=== PATIENT | male | born 1970 | race African-American/Black ===

== ENCOUNTER 2016-11-24 08:05 | Inpatient (IN) | payer MEDICAID ==
[2016-11-24] VITALS (11 sets, daily range): BP systolic 123–179; BP diastolic 86–113
[~2016-11-24] VITALS: Ht 172.7 cm; Wt 90.7 kg
[~2016-11-24 08:05] MED LIST: AMLO10TA80 PO; ASPI-864 PO; CARV25TA47 PO; HYDR100T26 PO; ISOS30TA6 PO; vancomycin IV
[2016-11-24] MEDS ORDERED: ONDANSETRON HCL 4MG/2ML VIAL IV STA (08:59)
[2016-11-24] MEDS ORDERED: MORPHINE SULFATE 4 MG/ML CPJ (NOT FOR IM USE) IV STA (08:59)
[2016-11-24] MEDS ORDERED: ASPIRIN 81MG TABLET PO ONE (09:00)
[2016-11-24] MEDS ORDERED: NITROGLYCERIN OINT 1GM/INCH UDPKT TD ONE (09:00)
[2016-11-24 09:25] LABS: BASOPHILS % 0.9 % (0.0-2.0); DIFFERENTIAL COMMENT 0; EOSINOPHILS % 3.6 % (0.0-5.0); LYMPHOCYTES % 15.4 % (20.0-50.0); MEAN CORPUSCULAR HEMOGLOBIN 26.9 pg (28.0-32.0); MEAN CORPUSCULAR HGB CONC 31.1 g/dL (31.0-37.0); MEAN CORPUSCULAR VOLUME 86.5 fL (80.0-94.0); MEAN PLATELET VOLUME 7.7 fl (7.4-10.4); NEUTROPHILS % 67.1 % (40.0-76.0); PLATELET 292 x1000/uL (130-400); WHITE BLOOD COUNT 6.3 x1000/uL (4.5-11.0)
[2016-11-24 09:29] LABS: INR 1.3; PROTHROMBIN TIME 13.3 sec
[2016-11-24 09:36] LABS: ALANINE AMINOTRANSFERASE 17 IU/L (13-61); ALBUMIN 1.9 g/dL (3.4-5.0); ANION GAP 18; CALCIUM 8.1 mg/dL (8.5-10.1); CARBON DIOXIDE 24 mEq/L (21-32); CHLORIDE 98 mEq/L (98-107); INDEX HEMOLYSI 1 (1-3); INDEX ICTERIC 1 (1-4); INDEX LIPEMIC 1 (1-3); TROPONIN I 0.04 ng/mL (0.00-0.04); UREA NITROGEN BLOOD 64 mg/dL (7-21); eGFR 12 mL/min (>60)
[2016-11-24 09:45] LABS: HEMATOCRIT. 19.9 % (42.0-52.0); HEMOGLOBIN. 6.2 g/dL (14.0-18.0)
[2016-11-24] MEDS ORDERED: FUROSEMIDE 40MG/4ML VIAL IVP ONE (10:15)
[2016-11-24] MEDS ORDERED: PIPERACILLIN/TAZOBACTAM 3.375GM/50ML PREMIX IV ONE (10:15)
[2016-11-24] MEDS ORDERED: VANCOMYCIN 1 G PREMIX 200 ML IV SCH (10:15)
[2016-11-24] MEDS ORDERED: PIPERACILLIN/TAZ 3.375G PREMIX 50 ML IV SCH (10:30)
[2016-11-24] MEDS ORDERED: DOCUSATE SODIUM 100MG CAPSULE PO PRN (11:30)
[2016-11-24] MEDS ORDERED: ONDANSETRON HCL 4MG/2ML VIAL IV PRN (11:30)
[2016-11-24] MEDS ORDERED: NITROGLYCERIN 0.4MG TABLET SL SL PRN (11:30)
[2016-11-24] MEDS ORDERED: MAGNESIUM/ALUMINUM HYDROXIDE/SIMETHICONE 30ML UDC PO PRN (11:30)
[2016-11-24] MEDS ORDERED: ACETAMINOPHEN 325MG TABLET PO PRN (11:30)
[2016-11-24] MEDS ORDERED: NA PHOS,M-B/NA PHOS,DI-BA ENEMA 118ML PR PRN (11:30)
[2016-11-24] MEDS ORDERED: IPRATROPIUM/ALBUTEROL 0.5-3(2.5)MG/3ML NEB INH PRN (11:30)
[2016-11-24] MEDS ORDERED: LORAZEPAM 2MG/ML CPJ IV PRN (11:30)
[2016-11-24] MEDS ORDERED: GUAIFENESIN 200MG/10ML SUGAR FREE UDC PO PRN (11:30)
[2016-11-24] MEDS ORDERED: ENOXAPARIN 40MG/0.4ML SYR SUBCUT SCH (11:30)
[2016-11-24] MEDS ORDERED: ZOLPIDEM TARTRATE 5MG TABLET PO PRN (11:30)
[2016-11-24] MEDS: ENOXAPARIN 30MG/0.3ML SYR SUBCUT SCH (12:30)
[2016-11-24] MEDS: HYDRALAZINE HCL 50MG TABLET PO SCH ×2 (14:00→21:23)
[2016-11-24] MEDS: SEVELAMER CARBONATE 800 MG TABLET PO SCH ×2 (14:41→18:31)
[2016-11-24] MEDS ORDERED: HEPARIN SODIUM 1,000 UNIT/1ML VIAL IV SCH (16:00)
[2016-11-24 16:27] LABS: CREATINE KINASE MB FRACTION 10.4 ng/mL (0.5-3.6); TROPONIN I 0.04 ng/mL (0.00-0.04)
[2016-11-24 17:56] LABS: HEPATITIS B SURFACE AB < 3.1 mIU/mL
[2016-11-24] MEDS ORDERED: ISOSORBIDE MONONITRATE 30MG TABLET SR 24HR PO SCH (18:15)
[2016-11-24] MEDS: ISOSORBIDE MONONITRATE 30MG TABLET SR 24HR PO SCH (18:31)
[2016-11-24] MEDS: CARVEDILOL 3.125 MG TABLET PO SCH (18:31)
[2016-11-24] MEDS: CLONIDINE 0.1MG TABLET PO PRN (18:31)
[2016-11-24] MEDS: TRAMADOL 50MG TABLET PO PRN (18:32)
[2016-11-24 18:36] LABS: HEPATITIS B CORE AB IGM NEGATIVE
[2016-11-24 23:51] LABS: CREATINE KINASE MB FRACTION 9.4 ng/mL (0.5-3.6); TROPONIN I 0.04 ng/mL (0.00-0.04)
[2016-11-25] VITALS (14 sets, daily range): BP systolic 128–164; BP diastolic 86–101
[2016-11-25] MEDS: TRAMADOL 50MG TABLET PO PRN ×4 (00:36→23:37)
[2016-11-25] MEDS: CLONIDINE 0.1MG TABLET PO PRN (00:36)
[2016-11-25] MEDS: HYDRALAZINE HCL 50MG TABLET PO SCH ×3 (05:29→22:08)
[2016-11-25] MEDS: CARVEDILOL 3.125 MG TABLET PO SCH ×2 (05:29→18:45)
[2016-11-25] MEDS: DIPHENHYDRAMINE 50MG/ML VIAL IV PRN ×4 (06:14→23:40)
[2016-11-25 07:03] LABS: HEMATOCRIT. 21.8 % (42.0-52.0); HEMOGLOBIN. 7.1 g/dL (14.0-18.0); MEAN CORPUSCULAR HEMOGLOBIN 28.6 pg (28.0-32.0); MEAN CORPUSCULAR HGB CONC 32.7 g/dL (31.0-37.0); MEAN CORPUSCULAR VOLUME 87.6 fL (80.0-94.0); MEAN PLATELET VOLUME 7.9 fl (7.4-10.4); PLATELET 254 x1000/uL (130-400); RED BLOOD CELL COUNT 2.49 mill/uL (4.7-6.1); RED CELL DISTRIBUTION WIDTH 18.9 % (11.6-14.6); WHITE BLOOD COUNT 6.8 x1000/uL (4.5-11.0)
[2016-11-25 07:35] LABS: CALCIUM 8.2 mg/dL (8.5-10.1)
[2016-11-25 07:42] LABS: DIFFERENTIAL COMMENT 1
[2016-11-25] MEDS: FOLIC ACID/VITAMIN B COMP W-C TABLET PO SCH (08:53)
[2016-11-25] MEDS: ISOSORBIDE MONONITRATE 30MG TABLET SR 24HR PO SCH (08:54)
[2016-11-25] MEDS: AMLODIPINE 10MG TABLET PO SCH (08:54)
[2016-11-25] MEDS: SEVELAMER CARBONATE 800 MG TABLET PO SCH ×3 (08:54→18:45)
[2016-11-25] MEDS: PANTOPRAZOLE SODIUM 40 MG/VIAL IV SCH (08:55)
[2016-11-25] MEDS: ENOXAPARIN 30MG/0.3ML SYR SUBCUT SCH (11:38)
[2016-11-25] MEDS ORDERED: HEPARIN SODIUM 1,000 UNIT/1ML VIAL IV NR (13:15)
[2016-11-25 14:11] LABS: ANISOCYTOSIS 1+; PLATELET ESTIMATE NORMAL
[2016-11-26] VITALS: BP 164/101
[2016-11-26] MEDS: CLONIDINE 0.1MG TABLET PO PRN (01:34)
[2016-11-26 04:00] VITALS: BP 177/97
[2016-11-26] MEDS: DIPHENHYDRAMINE 50MG/ML VIAL IV PRN (05:47)
[2016-11-26] MEDS: TRAMADOL 50MG TABLET PO PRN (05:51)
[2016-11-26] MEDS: CARVEDILOL 3.125 MG TABLET PO SCH (05:51)
[2016-11-26] MEDS: HYDRALAZINE HCL 50MG TABLET PO SCH ×2 (05:51→13:40)
[2016-11-26 06:32] LABS: HEMATOCRIT. 25.5 % (42.0-52.0); HEMOGLOBIN. 8.3 g/dL (14.0-18.0); MEAN CORPUSCULAR HEMOGLOBIN 27.9 pg (28.0-32.0); MEAN CORPUSCULAR HGB CONC 32.6 g/dL (31.0-37.0); MEAN CORPUSCULAR VOLUME 85.4 fL (80.0-94.0); MEAN PLATELET VOLUME 7.9 fl (7.4-10.4); PLATELET 293 x1000/uL (130-400); RED BLOOD CELL COUNT 2.99 mill/uL (4.7-6.1); RED CELL DISTRIBUTION WIDTH 17.8 % (11.6-14.6); WHITE BLOOD COUNT 6.7 x1000/uL (4.5-11.0)
[2016-11-26 07:34] LABS: CALCIUM 8.1 mg/dL (8.5-10.1)
[2016-11-26 07:45] LABS: DIFFERENTIAL COMMENT 1
[2016-11-26 08:00] VITALS: BP 154/100
[2016-11-26] MEDS: PANTOPRAZOLE SODIUM 40 MG/VIAL IV SCH (09:23)
[2016-11-26] MEDS: FOLIC ACID/VITAMIN B COMP W-C TABLET PO SCH (09:24)
[2016-11-26] MEDS: ISOSORBIDE MONONITRATE 30MG TABLET SR 24HR PO SCH (09:24)
[2016-11-26] MEDS: AMLODIPINE 10MG TABLET PO SCH (09:24)
[2016-11-26] MEDS: SEVELAMER CARBONATE 800 MG TABLET PO SCH ×2 (09:25→13:40)
[2016-11-26 12:00] VITALS: BP 160/110
[2016-11-26] MEDS: ENOXAPARIN 30MG/0.3ML SYR SUBCUT SCH (12:53)
[2016-11-26 13:18] VITALS: BP 160/110
[2016-11-26 16:28] LABS: PLATELET ESTIMATE NORMAL
[2016-11-27] MEDS ORDERED: FAMOTIDINE 20MG TABLET PO SCH (09:00)
== END 2016-11-26 12:30 | disposition home or self-care (01) | DRG 194 ==
LOC: ER 08:37 → 7WST 10:52
PROVIDERS: ADMIT Internal Medicine; ATTEND Internal Medicine
PROC: 30233N1 Transfusion of Nonautologous Red Blood Cells into Peripheral Vein, Percutaneous Approach (ICD-10-PCS; principal; 2016-11-24)
PROC: 5A1D60Z (ICD-10-PCS; 2016-11-24)
DX: I13.2 Hypertensive heart and chronic kidney disease with heart failure and with stage 5 chronic kidney disease, or end stage renal disease (principal); J96.00 Acute respiratory failure, unspecified whether with hypoxia or hypercapnia; E43 Unspecified severe protein-calorie malnutrition; J18.9 Pneumonia, unspecified organism; E87.0 Hyperosmolality and hypernatremia; N18.6 End stage renal disease; I42.9 Cardiomyopathy, unspecified; E11.22 Type 2 diabetes mellitus with diabetic chronic kidney disease; I50.43 Acute on chronic combined systolic (congestive) and diastolic (congestive) heart failure; D63.8 Anemia in other chronic diseases classified elsewhere; F12.90 Cannabis use, unspecified, uncomplicated; J45.909 Unspecified asthma, uncomplicated; Z98.890 Other specified postprocedural states; Z83.3 Family history of diabetes mellitus; Z82.49 Family history of ischemic heart disease and other diseases of the circulatory system; Z68.30 Body mass index [BMI] 30.0-30.9, adult; Z99.2 Dependence on renal dialysis
CPT/HCPCS: 36415; 71010; 80048; 80053; 82550; 82553; 83036; 84484; 85025; 85610; 86705; 86706; 86850; 86900; 86920; 87040; 93005; 93970; 96365; 96375; 99285; C9113; J1200; J1644; J1650; J1940; J2270; J2405; J2543; J3370; J7030; J7050; J7620; P9016

== ENCOUNTER 2016-12-02 16:29 | Inpatient (IN) | payer MEDICAID ==
[~2016-12-02] VITALS: Ht 172.7 cm; Wt 90.7 kg
[2016-12-02 17:34] LABS: MEAN CORPUSCULAR HEMOGLOBIN 27.4 pg (28.0-32.0); MEAN CORPUSCULAR HGB CONC 32.9 g/dL (31.0-37.0); MEAN CORPUSCULAR VOLUME 83.3 fL (80.0-94.0); MEAN PLATELET VOLUME 7.1 fl (7.4-10.4); PLATELET 261 x1000/uL (130-400); RED BLOOD CELL COUNT 2.24 mill/uL (4.7-6.1); RED CELL DISTRIBUTION WIDTH 18.4 % (11.6-14.6); WHITE BLOOD COUNT 8.4 x1000/uL (4.5-11.0)
[2016-12-02 17:36] LABS: HEMOGLOBIN. 6.1 g/dL (14.0-18.0)
[2016-12-02 17:37] LABS: DIFFERENTIAL COMMENT 1; HEMATOCRIT. 18.7 % (42.0-52.0)
[2016-12-02 17:38] LABS: CHLORIDE 98 mEq/L (98-107); INDEX HEMOLYSI 1 (1-3); INDEX ICTERIC 1 (1-4); INDEX LIPEMIC 1 (1-3)
[2016-12-02 17:41] LABS: ALBUMIN 1.9 g/dL (3.4-5.0); ANION GAP 14; CALCIUM 7.9 mg/dL (8.5-10.1); CARBON DIOXIDE 30 mEq/L (21-32); INR 1.2; LIPASE 225 IU/L (73-393); MAGNESIUM 2.4 mg/dL (1.8-2.4); PARTIAL THROMBOPLASTIN TIME 30.6 sec (24.0-34.0); PROTHROMBIN TIME 12.7 sec; UREA NITROGEN BLOOD 39 mg/dL (7-21)
[2016-12-02 17:44] LABS: ALANINE AMINOTRANSFERASE 29 IU/L (13-61); PHOSPHORUS 3.9 mg/dL (2.5-4.9); eGFR 26 mL/min (>60)
[2016-12-02 17:46] LABS: TROPONIN I 0.06 ng/mL (0.00-0.04)
[2016-12-02 17:49] LABS: ANISOCYTOSIS 1+; PLATELET ESTIMATE NORMAL
[2016-12-02] MEDS ORDERED: MORPHINE SULFATE 4 MG/ML CPJ (NOT FOR IM USE) IV ONE ×2 (18:15→19:15)
[2016-12-02] MEDS ORDERED: ONDANSETRON HCL 4MG/2ML VIAL IV ONE ×2 (18:15→19:15)
[2016-12-02] MEDS ORDERED: ZOLPIDEM TARTRATE 5MG TABLET PO PRN (21:00)
[2016-12-02] MEDS ORDERED: DIPHENHYDRAMINE 50MG/ML VIAL IV ONE (21:00)
[2016-12-02 22:39] VITALS: BP 157/89
[2016-12-02] MEDS ORDERED: DOCUSATE SODIUM 100MG CAPSULE PO PRN (23:00)
[2016-12-02] MEDS ORDERED: IPRATROPIUM/ALBUTEROL 0.5-3(2.5)MG/3ML NEB INH PRN (23:00)
[2016-12-02] MEDS ORDERED: ONDANSETRON HCL 4MG/2ML VIAL IV PRN (23:00)
[2016-12-02] MEDS: MORPHINE SULFATE 2 MG/ML CPJ (NOT FOR IM USE) IV PRN (23:45)
[2016-12-03] VITALS (16 sets, daily range): BP systolic 143–178; BP diastolic 82–110
[2016-12-03] MEDS ORDERED: PIPERACILLIN/TAZ 3.375G PREMIX 50 ML IV ONE (00:30)
[2016-12-03] MEDS: DIPHENHYDRAMINE 50MG/ML VIAL IV PRN ×4 (02:06→18:05)
[2016-12-03] MEDS: MORPHINE SULFATE 2 MG/ML CPJ (NOT FOR IM USE) IV PRN ×5 (04:11→21:06)
[2016-12-03] MEDS: OMEPRAZOLE 20MG CAPSULE EXTENDED RELEASE PO SCH (06:25)
[2016-12-03 09:19] LABS: HEMATOCRIT. 21.4 % (42.0-52.0); HEMOGLOBIN. 7.2 g/dL (14.0-18.0); MEAN CORPUSCULAR HEMOGLOBIN 28.3 pg (28.0-32.0); MEAN CORPUSCULAR HGB CONC 33.6 g/dL (31.0-37.0); MEAN CORPUSCULAR VOLUME 84.2 fL (80.0-94.0); MEAN PLATELET VOLUME 7.6 fl (7.4-10.4); PLATELET 246 x1000/uL (130-400); RED BLOOD CELL COUNT 2.55 mill/uL (4.7-6.1); RED CELL DISTRIBUTION WIDTH 17.8 % (11.6-14.6)
[2016-12-03 09:30] LABS: DIFFERENTIAL COMMENT 1
[2016-12-03 09:38] LABS: CALCIUM 8.2 mg/dL (8.5-10.1); MAGNESIUM 2.7 mg/dL (1.8-2.4); TROPONIN I 0.05 ng/mL (0.00-0.04)
[2016-12-03] MEDS: PIPERACILLIN/TAZ 2.25G PREMIX 50 ML IV SCH ×2 (13:00→21:06)
[2016-12-03 14:42] LABS: ANISOCYTOSIS 1+; PLATELET ESTIMATE NORMAL
[2016-12-03] MEDS: CLONIDINE 0.1MG TABLET PO PRN (17:17)
[2016-12-03] MEDS: ACETAMINOPHEN 325MG TABLET PO PRN (19:30)
[2016-12-04] VITALS (8 sets, daily range): BP systolic 151–188; BP diastolic 96–133
[2016-12-04] MEDS: DIPHENHYDRAMINE 50MG/ML VIAL IV PRN ×5 (00:05→21:01)
[2016-12-04] MEDS: MORPHINE SULFATE 2 MG/ML CPJ (NOT FOR IM USE) IV PRN ×7 (00:45→23:51)
[2016-12-04] MEDS: CLONIDINE 0.1MG TABLET PO PRN ×3 (00:45→16:36)
[2016-12-04] MEDS: ACETAMINOPHEN 325MG TABLET PO PRN (05:08)
[2016-12-04] MEDS: PIPERACILLIN/TAZ 2.25G PREMIX 50 ML IV SCH ×3 (05:47→21:01)
[2016-12-04 06:01] LABS: HEMATOCRIT. 25.8 % (42.0-52.0); HEMOGLOBIN. 8.7 g/dL (14.0-18.0); MEAN CORPUSCULAR HEMOGLOBIN 29.2 pg (28.0-32.0); MEAN CORPUSCULAR HGB CONC 33.7 g/dL (31.0-37.0); MEAN CORPUSCULAR VOLUME 86.7 fL (80.0-94.0); PLATELET 251 x1000/uL (130-400); RED BLOOD CELL COUNT 2.98 mill/uL (4.7-6.1); RED CELL DISTRIBUTION WIDTH 17.3 % (11.6-14.6); WHITE BLOOD COUNT 12.1 x1000/uL (4.5-11.0)
[2016-12-04 06:11] LABS: DIFFERENTIAL COMMENT 1
[2016-12-04] MEDS: OMEPRAZOLE 20MG CAPSULE EXTENDED RELEASE PO SCH (06:27)
[2016-12-04 06:47] LABS: CALCIUM 8.5 mg/dL (8.5-10.1)
[2016-12-04 09:27] LABS: ANISOCYTOSIS 1+; PLATELET ESTIMATE NORMAL
[2016-12-04] MEDS: AMLODIPINE 10MG TABLET PO SCH (10:50)
[2016-12-04] MEDS: HYDRALAZINE HCL 100MG TABLET PO SCH ×2 (13:23→21:00)
[2016-12-04] MEDS: HYDROCODONE/ACETAMINOPHEN 5/325MG TABLET PO PRN ×2 (13:24→18:03)
[2016-12-04] MEDS: CARVEDILOL 25MG TABLET PO SCH (20:10)
[2016-12-05] VITALS (9 sets, daily range): BP systolic 142–160; BP diastolic 86–102
[2016-12-05] MEDS: DIPHENHYDRAMINE 50MG/ML VIAL IV PRN ×3 (01:58→10:16)
[2016-12-05] MEDS: HYDROCODONE/ACETAMINOPHEN 5/325MG TABLET PO PRN ×2 (01:59→10:25)
[2016-12-05] MEDS: CLONIDINE 0.1MG TABLET PO PRN (04:05)
[2016-12-05] MEDS: MORPHINE SULFATE 2 MG/ML CPJ (NOT FOR IM USE) IV PRN ×3 (04:05→14:14)
[2016-12-05] MEDS: PIPERACILLIN/TAZ 2.25G PREMIX 50 ML IV SCH ×2 (05:28→14:13)
[2016-12-05] MEDS: HYDRALAZINE HCL 100MG TABLET PO SCH ×2 (05:28→14:14)
[2016-12-05 05:52] LABS: BASOPHILS % 0.7 % (0.0-2.0); EOSINOPHILS % 2.4 % (0.0-5.0); HEMATOCRIT. 24.9 % (42.0-52.0); HEMOGLOBIN. 8.2 g/dL (14.0-18.0); LYMPHOCYTES % 10.5 % (20.0-50.0); MEAN CORPUSCULAR HEMOGLOBIN 28.1 pg (28.0-32.0); MEAN CORPUSCULAR HGB CONC 32.8 g/dL (31.0-37.0); MEAN CORPUSCULAR VOLUME 85.7 fL (80.0-94.0); MEAN PLATELET VOLUME 8.3 fl (7.4-10.4); MONOCYTES % 13.9 % (2.0-8.0); NEUTROPHILS % 72.5 % (40.0-76.0); PLATELET 237 x1000/uL (130-400); RED CELL DISTRIBUTION WIDTH 17.3 % (11.6-14.6); WHITE BLOOD COUNT 11.9 x1000/uL (4.5-11.0)
[2016-12-05 05:58] LABS: CALCIUM 8.5 mg/dL (8.5-10.1)
[2016-12-05] MEDS: OMEPRAZOLE 20MG CAPSULE EXTENDED RELEASE PO SCH (05:58)
[2016-12-05] MEDS: CARVEDILOL 25MG TABLET PO SCH (08:37)
[2016-12-05] MEDS: AMLODIPINE 10MG TABLET PO SCH (08:37)
[2016-12-06] MEDS ORDERED: FAMOTIDINE 20MG TABLET PO SCH (09:00)
== END 2016-12-05 18:30 | disposition home or self-care (01) | DRG 115 ==
LOC: ER 16:29 → 6WST 18:43
PROVIDERS: ADMIT Family Medicine Adult Medicine; ATTEND Family Medicine Adult Medicine
PROC: 30233N1 Transfusion of Nonautologous Red Blood Cells into Peripheral Vein, Percutaneous Approach (ICD-10-PCS; principal; 2016-12-03)
PROC: 5A1D60Z (ICD-10-PCS; 2016-12-03)
DX: R04.0 Epistaxis (principal); I13.2 Hypertensive heart and chronic kidney disease with heart failure and with stage 5 chronic kidney disease, or end stage renal disease; N18.6 End stage renal disease; I42.9 Cardiomyopathy, unspecified; E11.22 Type 2 diabetes mellitus with diabetic chronic kidney disease; I50.9 Heart failure, unspecified; R91.8 Other nonspecific abnormal finding of lung field; D64.9 Anemia, unspecified; Z99.2 Dependence on renal dialysis; Z82.49 Family history of ischemic heart disease and other diseases of the circulatory system; Z83.3 Family history of diabetes mellitus; Z86.14 Personal history of Methicillin resistant Staphylococcus aureus infection; Z79.82 Long term (current) use of aspirin; Z79.899 Other long term (current) drug therapy
CPT/HCPCS: 36415; 71010; 80048; 80053; 83605; 83690; 83735; 84100; 84484; 85025; 85610; 85730; 86850; 86870; 86880; 86900; 86920; 87040; 93005; 96374; 96375; 96376; 99291; J1200; J2270; J2405; J2543; J7030; J7050; J7060; P9016

== ENCOUNTER 2017-01-08 22:29 | Inpatient (IN) | payer MEDICAID ==
[~2017-01-08] VITALS: Ht 172.7 cm; Wt 95.3 kg
[~2017-01-08 22:29] MED LIST changes: -ASPI-864 PO; -vancomycin IV
[2017-01-08] MEDS ORDERED: NITROGLYCERIN OINT 1GM/INCH UDPKT TD STA (22:57)
[2017-01-08] MEDS ORDERED: FUROSEMIDE 40MG/4ML VIAL IV STA (22:57)
[2017-01-08] MEDS ORDERED: ONDANSETRON HCL 4MG/2ML VIAL IV ONE (23:00)
[2017-01-08] MEDS ORDERED: MORPHINE SULFATE 4 MG/ML CPJ (NOT FOR IM USE) IV ONE (23:00)
[2017-01-08 23:19] LABS: HEMATOCRIT. 29.9 % (42.0-52.0); HEMOGLOBIN. 9.5 g/dL (14.0-18.0); MEAN CORPUSCULAR HEMOGLOBIN 26.7 pg (28.0-32.0); MEAN CORPUSCULAR HGB CONC 31.7 g/dL (31.0-37.0); MEAN CORPUSCULAR VOLUME 84.2 fL (80.0-94.0); MEAN PLATELET VOLUME 7.9 fl (7.4-10.4); PLATELET 264 x1000/uL (130-400); RED BLOOD CELL COUNT 3.55 mill/uL (4.7-6.1); RED CELL DISTRIBUTION WIDTH 20.4 % (11.6-14.6); WHITE BLOOD COUNT 2.8 x1000/uL (4.5-11.0)
[2017-01-08 23:24] LABS: INR 1.6; PARTIAL THROMBOPLASTIN TIME 35.9 sec (24.0-34.0); PROTHROMBIN TIME 16.3 sec
[2017-01-08 23:26] LABS: DIFFERENTIAL COMMENT 1
[2017-01-08 23:33] LABS: ALANINE AMINOTRANSFERASE 11 IU/L (13-61); ALBUMIN 2.1 g/dL (3.4-5.0); ANION GAP 22; CALCIUM 8.2 mg/dL (8.5-10.1); CARBON DIOXIDE 19 mEq/L (21-32); CHLORIDE 95 mEq/L (98-107); INDEX HEMOLYSI 1 (1-3); INDEX ICTERIC 1 (1-4); INDEX LIPEMIC 1 (1-3); TROPONIN I 0.07 ng/mL (0.00-0.04); UREA NITROGEN BLOOD 62 mg/dL (7-21); eGFR 9 mL/min (>60)
[2017-01-09 00:40] LABS: NT PRO B-TYPE NATRIURETIC PEP 196700 pg/mL (5-125)
[2017-01-09] MEDS ORDERED: DEXTROSE 50% WATER 50ML SYRINGE IV ONE ×3 (00:45→23:00)
[2017-01-09 01:12] LABS: PLATELET ESTIMATE NORMAL
[2017-01-09] MEDS ORDERED: DIPHENHYDRAMINE 50MG/ML VIAL IV PRN (03:15)
[2017-01-09] MEDS ORDERED: HYDROCODONE/ACETAMINOPHEN 5/325MG TABLET PO PRN (03:15)
[2017-01-09] MEDS ORDERED: CLONIDINE 0.1MG TABLET PO PRN (03:15)
[2017-01-09] MEDS ORDERED: ATROPINE SULFATE 1MG/10ML SYR ONE ×3 (06:00→23:00)
[2017-01-09 08:28] LABS: HEMATOCRIT 27.3 % (42.0-52.0); HEMOGLOBIN 8.3 g/dL (14.0-18.0); MEAN CORPUSCULAR HEMOGLOBIN 26.7 pg (28.0-32.0); MEAN CORPUSCULAR HGB CONC 30.4 g/dL (31.0-37.0); MEAN CORPUSCULAR VOLUME 87.6 fL (80.0-94.0); PLATELET 207 x1000/uL (130-400); RED BLOOD CELL COUNT 3.12 mill/uL (4.7-6.1)
[2017-01-09 08:35] LABS: CALCIUM 8.1 mg/dL (8.5-10.1)
[2017-01-09 08:50] LABS: BG BASE EXCESS -16.2 mmol/L (-2.0-2.0); BG CARBOXYHEMOGLOBIN 0.3 % (0.5-1.5); BG DEOXYHEMOGLOBIN 1.1 % (0.0-5.0); BG FRACTION INSPIRED OXYGEN 100; BG HCO3 ACT 12.9 mmol/L (22.0-26.0); BG METHEMOGLOBIN 0.3 % (0.0-1.5); BG OXYGEN SATURATION 98.9 % (92.0-98.5); BG OXYHEMOGLOBIN 98.3 % (94.0-97.0); BG PCO2 45.9 mmHg (35.0-45.0); BG PH 7.068 (7.350-7.450); BG PO2 174.2 mmHg (75.0-100.0); BG SAMPLE SITE RIGHT BRACHIAL; BG TIDAL VOLUME(mL) 600 mL; BG TOTAL HEMOGLOBIN 7.9 g/dL (12.0-18.0); BG VENT MODE VENT - A/C; BG VENT RATE 16 set
[2017-01-09] MEDS ORDERED: SODIUM BICARBONATE 8.4% 1 MEQ/ML 50ML SYR IV ONE ×2 (08:57→09:00)
[2017-01-09] MEDS ORDERED: AMLODIPINE 10MG TABLET PO SCH (09:00)
[2017-01-09] MEDS ORDERED: ASPIRIN 81MG TABLET PO SCH (09:00)
[2017-01-09] MEDS: HYDRALAZINE HCL 100MG TABLET PO SCH ×3 (09:00→16:52)
[2017-01-09] MEDS ORDERED: ISOSORBIDE MONONITRATE 30MG TABLET SR 24HR PO SCH (09:00)
[2017-01-09] MEDS: CARVEDILOL 25MG TABLET PO SCH ×2 (09:00→20:51)
[2017-01-09] MEDS ORDERED: EPINEPHRINE 0.1MG/ML (1:10,000) 10ML SYR ONE ×3 (09:02→23:00)
[2017-01-09 09:25] LABS: BASOPHILS % 0.4 % (0.0-2.0); EOSINOPHILS % 0.7 % (0.0-5.0); HEMATOCRIT. 27.5 % (42.0-52.0); HEMOGLOBIN. 8.4 g/dL (14.0-18.0); LYMPHOCYTES % 31.1 % (20.0-50.0); MEAN CORPUSCULAR HEMOGLOBIN 27.1 pg (28.0-32.0); MEAN CORPUSCULAR HGB CONC 30.6 g/dL (31.0-37.0); MEAN CORPUSCULAR VOLUME 88.5 fL (80.0-94.0); MEAN PLATELET VOLUME 8.8 fl (7.4-10.4); MONOCYTES % 7.3 % (2.0-8.0); NEUTROPHILS % 60.5 % (40.0-76.0); PLATELET 208 x1000/uL (130-400); RED BLOOD CELL COUNT 3.11 mill/uL (4.7-6.1); RED CELL DISTRIBUTION WIDTH 20.4 % (11.6-14.6); WHITE BLOOD COUNT 4.1 x1000/uL (4.5-11.0)
[2017-01-09 09:26] LABS: DIFFERENTIAL COMMENT 1
[2017-01-09 09:30] LABS: CHLORIDE 93 mEq/L (98-107); INDEX HEMOLYSI 3 (1-3); INDEX ICTERIC 1 (1-4); INDEX LIPEMIC 1 (1-3)
[2017-01-09] MEDS ORDERED: INSULIN REGULAR (HUMULIN R) UD 100 UNITS/ML SYR IV NR (09:30)
[2017-01-09 09:40] LABS: ALANINE AMINOTRANSFERASE 11 IU/L (13-61); ALBUMIN 1.7 g/dL (3.4-5.0); ANION GAP 27; CALCIUM 8.3 mg/dL (8.5-10.1); CARBON DIOXIDE 16 mEq/L (21-32); CREATINE KINASE 981 IU/L (39-308); CREATINE KINASE MB FRACTION 6.7 ng/mL (0.5-3.6); TROPONIN I 0.06 ng/mL (0.00-0.04); UREA NITROGEN BLOOD 61 mg/dL (7-21); eGFR 11 mL/min (>60)
[2017-01-09 09:41] LABS: LACTIC ACID 13.1 mmol/L (0.4-2.0)
[2017-01-09] MEDS ORDERED: PANTOPRAZOLE SODIUM 40 MG/VIAL IV SCH (09:45)
[2017-01-09] MEDS: DOPAMINE 400MG PREMIX 250 ML IV PRN ×4 (09:58→22:22)
[2017-01-09] MEDS: PIPERACILLIN/TAZ 2.25G PREMIX 50 ML IV SCH ×2 (10:56→18:35)
[2017-01-09] MEDS ORDERED: VANCOMYCIN 1500MG in DEXTROSE 5% WATER 250ML IV NR (11:00)
[2017-01-09 11:13] LABS: BG BASE EXCESS -11.6 mmol/L (-2.0-2.0); BG CARBOXYHEMOGLOBIN 0.3 % (0.5-1.5); BG DEOXYHEMOGLOBIN 0.3 % (0.0-5.0); BG FRACTION INSPIRED OXYGEN 100; BG HCO3 ACT 14.6 mmol/L (22.0-26.0); BG METHEMOGLOBIN 0.2 % (0.0-1.5); BG OXYGEN SATURATION 99.7 % (92.0-98.5); BG OXYHEMOGLOBIN 99.2 % (94.0-97.0); BG PCO2 33.8 mmHg (35.0-45.0); BG PH 7.253 (7.350-7.450); BG PO2 415.2 mmHg (75.0-100.0); BG SAMPLE SITE RIGHT BRACHIAL; BG TIDAL VOLUME(mL) 600 mL; BG VENT MODE VENT - A/C; BG VENT RATE 16 set
[2017-01-09] MEDS ORDERED: DEXT 10% WATER 1,000 ML IV SCH (12:00)
[2017-01-09] MEDS ORDERED: SODIUM BICARBONATE 8.4% 1 MEQ/ML 50ML SYR IV NR (12:00)
[2017-01-09] MEDS: EPINEPHRINE 1 MG in SODIUM CHLORIDE 0.9% 249 ML IV PRN ×2 (15:04→18:29)
[2017-01-09 15:05] LABS: BG BASE EXCESS -7.2 mmol/L (-2.0-2.0); BG CARBOXYHEMOGLOBIN 0.1 % (0.5-1.5); BG DEOXYHEMOGLOBIN 0.4 % (0.0-5.0); BG FRACTION INSPIRED OXYGEN 60; BG HCO3 ACT 16.9 mmol/L (22.0-26.0); BG METHEMOGLOBIN 0.3 % (0.0-1.5); BG OXYGEN SATURATION 99.6 % (92.0-98.5); BG OXYHEMOGLOBIN 99.2 % (94.0-97.0); BG PCO2 29.4 mmHg (35.0-45.0); BG PH 7.378 (7.350-7.450); BG PO2 239.7 mmHg (75.0-100.0); BG SAMPLE SITE RIGHT BRACHIAL; BG TIDAL VOLUME(mL) 600 mL; BG TOTAL HEMOGLOBIN 10.1 g/dL (12.0-18.0); BG VENT MODE VENT - A/C; BG VENT RATE 16 set
[2017-01-09] MEDS: IPRATROPIUM/ALBUTEROL 0.5-3(2.5)MG/3ML NEB HHN SCH ×2 (16:48→19:59)
[2017-01-09] MEDS ORDERED: EPINEPHRINE IV PRN (21:45)
[2017-01-09] MEDS ORDERED: SODIUM CHLORIDE 0.9% IV PRN (21:45)
[2017-01-09] MEDS ORDERED: DOPAMINE 400MG IN DEXT 5% 250ML PREMIX IV ONE (23:00)
[2017-01-09] MEDS ORDERED: CALCIUM CHLORIDE 1GM/10ML SYR IV ONE ×2 (23:00)
[2017-01-09] MEDS ORDERED: SODIUM BICARBONATE 7.5% 0.9 MEQ/ML 50ML SYR IV ONE ×2 (23:00)
[2017-01-09 23:31] VITALS: BP 58/40
[2017-01-09 23:35] LABS: BG BASE EXCESS -15.6 mmol/L (-2.0-2.0); BG CARBOXYHEMOGLOBIN 0.2 % (0.5-1.5); BG DEOXYHEMOGLOBIN 91.2 % (0.0-5.0); BG FRACTION INSPIRED OXYGEN 40; BG HCO3 ACT 15.3 mmol/L (22.0-26.0); BG METHEMOGLOBIN 2.9 % (0.0-1.5); BG OXYHEMOGLOBIN 5.7 % (94.0-97.0); BG PCO2 64.6 mmHg (35.0-45.0); BG PH 6.993 (7.350-7.450); BG PO2 < 30.3 mmHg (75.0-100.0); BG SAMPLE SITE LEFT FEMORAL; BG TIDAL VOLUME(mL) 600 mL; BG VENT MODE VENT - A/C; BG VENT RATE 16 set
== END 2017-01-10 01:14 | disposition expired | DRG 133 ==
LOC: ER 22:47 → 3WST 01-09 00:10 → CVICU 01-09 07:52
PROVIDERS: ADMIT Hospitalist; ATTEND Hospitalist
PROC: 5A09357 Assistance with Respiratory Ventilation, Less than 24 Consecutive Hours, Continuous Positive Airway Pressure (ICD-10-PCS; 2017-01-08)
PROC: 5A1935Z Respiratory Ventilation, Less than 24 Consecutive Hours (ICD-10-PCS; principal; 2017-01-09)
PROC: 5A12012 Performance of Cardiac Output, Single, Manual (ICD-10-PCS; 2017-01-09)
PROC: 05H933Z Insertion of Infusion Device into Right Brachial Vein, Percutaneous Approach (ICD-10-PCS; 2017-01-09)
PROC: B54MZZA Ultrasonography of Right Upper Extremity Veins, Guidance (ICD-10-PCS; 2017-01-09)
PROC: 0BH17EZ Insertion of Endotracheal Airway into Trachea, Via Natural or Artificial Opening (ICD-10-PCS; 2017-01-09)
PROC: 5A1D00Z (ICD-10-PCS; 2017-01-09)
DX: J96.00 Acute respiratory failure, unspecified whether with hypoxia or hypercapnia (principal); R57.9 Shock, unspecified; I46.9 Cardiac arrest, cause unspecified; I50.23 Acute on chronic systolic (congestive) heart failure; G93.40 Encephalopathy, unspecified; E43 Unspecified severe protein-calorie malnutrition; J18.9 Pneumonia, unspecified organism; D68.9 Coagulation defect, unspecified; N18.6 End stage renal disease; E11.649 Type 2 diabetes mellitus with hypoglycemia without coma; I13.2 Hypertensive heart and chronic kidney disease with heart failure and with stage 5 chronic kidney disease, or end stage renal disease; E87.5 Hyperkalemia; B18.2 Chronic viral hepatitis C; D64.9 Anemia, unspecified; E11.22 Type 2 diabetes mellitus with diabetic chronic kidney disease; E87.1 Hypo-osmolality and hyponatremia; E87.2 Acidosis; G93.1 Anoxic brain damage, not elsewhere classified; I27.2 Other secondary pulmonary hypertension; I42.9 Cardiomyopathy, unspecified; Z68.31 Body mass index [BMI] 31.0-31.9, adult; Z82.49 Family history of ischemic heart disease and other diseases of the circulatory system; Z99.2 Dependence on renal dialysis; Z83.3 Family history of diabetes mellitus; Z86.14 Personal history of Methicillin resistant Staphylococcus aureus infection
CPT/HCPCS: 36415; 36569; 36600; 70450; 71010; 76937; 78615; 80048; 80053; 82375; 82550; 82553; 82805; 82962; 83605; 83880; 84484; 85025; 85027; 85610; 85730; 87040; 87070; 87077; 87186; 92950; 93005; 93306; 94002; 94640; 96374; 96375; 99291; A9512; C1725; C9113; J0171; J0461; J1200; J1265; J1815; J1940; J2270; J2405; J2543; J3370; J3490; J7030; J7040; J7050; J7060; J7070; J7620